=== PATIENT | male | born 1945 | race Caucasian/White ===

== ENCOUNTER → 2021-03-15 11:25 | Outpatient (CLI) | payer MEDICARE, OTHER, SELFPAY ==
--- NOTE | 2021-03-15 11:32 | CT_ITS ---
STUDY: CT LUMBAR SPINE WITH INTRATHECAL CONTRAST (LUMBAR CT MYELOGRAM) REASON FOR EXAM: Male, 75 years old. SPINAL Stenosis, lumbar REGION WO NEUROGENIC NATACHA RADIATION DOSAGE (If Supplied By Facility): CTDIvol = ( 15.23 ) mGy, DLP = ( 389.13 ) mGycm TECHNIQUE: Transaxial images were obtained from the T12 vertebra through the S1 vertebrae, following intrathecal administration of 10 ml of ISOVUE-M 200 contrast material, performed by Dr. Maicol BEYER. Please refer to this physicians technical notes for procedural details. Coronal and sagittal reconstructions were obtained. Individualized dose optimization techniques were used for this CT. COMPARISON: Comparison is made with prior lumbar myelogram. FINDINGS: Normal lumbar lordosis. There is no substantial scoliosis. Normal vertebrae of the lumbar spine. There is dependent layering of contrast material in the distal thecal sac. The conus medullaris terminates in a normal position at the L1-L2 level. There is no demonstrated cauda equina nerve root abnormality or intraspinal mass. T12-L1: There is evidence of a large herniated disc central and left lateral aspect of the thecal sac extending behind the L1 vertebrae on the left side. This is in keeping with an extruded disc. L1-2: Marked degree of disc space narrowing. Mild degree of spondylosis. Minimal degree of central canal stenosis and bilateral neural foraminal stenosis. L2-3: Moderate degree of disc space narrowing. Mild degree of central canal and bilateral neural foraminal stenosis secondary to hypertrophy of the facet joints and ligamentum flavum. L3-4: Moderate degree of disc space narrowing. Moderate degree of central canal stenosis as well as bilateral neural foraminal stenosis secondary to hypertrophy of the facet joints and ligamentum flavum. This is worse on the right side. L4-5: Severe stenosis due to hypertrophy of the facet joints as well as ligamentum flavum and central disc bulge. L5-S1: Mild degree of disc space narrowing. Central and left lateral disc herniation causing deformity of the thecal sac worse on the left side. Normal visualized sacroiliac joints. Normal visualized paraspinous soft tissue structures. CT/Spine Lumbar WITH Contrast IMPRESSION: Multilevel spinal stenosis as described. This is worse at the L4-L5 and T12-L1 levels. Electronically Signed: Alex Milian MD at 14:19 EDT , Service support ,
--- NOTE | 2021-03-15 11:40 | RAD_ITS ---
PROCEDURE: LUMBAR MYELOGRAM DATE OF EXAMINATION: 03/15/2021. INDICATION: Male, 75 years old. Low back pain. PHYSICIAN: Alex Milian M.D. CONSENT: The patient''s history and physical findings were reviewed. The lumbar myelogram procedure as well as the benefits and possible complications including infection and bleeding were discussed with the patient prior to signing a consent. SEDATION: Local anesthesia with 3 mL of 1% lidocaine was used. FLUOROSCOPY TIME (if supplied): (2:07) minutes/seconds Injection Information: 10 cc of ISOVUE-M 200 Number of images obtained: 6 TECHNIQUE: Digital fluoroscopy was used to identify a safe approach for the lumbar myelogram. The back was prepped and draped in usual fashion. Local anesthesia was utilized. Under fluoroscopic guidance a 22-gauge spinal needle was inserted into the spinal canal at the L4-5 level. Clear spinal fluid was seen. Then mL of Isovue 200 M was injected into the spinal canal. There is good opacification of the spinal fluid. There is evidence of multiple levels of extradural defects from L1 through the S1 level with areas of spinal stenosis at the T12-L1, L1-L2, L2-L3, L4-L5 and L5-S1 levels. RAD/Lumbar Myelogram IMPRESSION: Multilevel spinal stenosis as described. A CT scan will be obtained. The patient tolerated the procedure well. Electronically Signed: Alex Milian MD at 14:56 EDT , Service support ,
[2021-03-15 11:51] VITALS: BP 151/82; PULSE 60; RESP 18; TEMP 36.9; O2SAT 97; BMI 25.4
[2021-03-15] MEDS: Lidocaine 2% (5ml sdv) 5 ML VIAL.MPF INFILT (12:20)
[2021-03-15 13:40] VITALS: BP 147/92; PULSE 57; RESP 18; O2SAT 93
== END | disposition home or self-care (01) ==
PROVIDERS: PCP Family Medicine; Referring Provider Orthopaedic Surgery; Visit Provider Orthopaedic Surgery
DX: M48.061 Spinal stenosis, lumbar region without neurogenic claudication (principal)
CPT/HCPCS: 62304; 72132; Q9965

== ENCOUNTER → 2024-02-09 | Outpatient (CLI) | payer MEDICARE, OTHER, SELFPAY | END | disposition home or self-care (01) | LOC: LABSPEC 17:33 | PROVIDERS: PCP Family Medicine; Visit Provider Physician Assistant Surgical | DX: N39.0 Urinary tract infection, site not specified (principal) | CPT/HCPCS: 87086; 87088; 87186 ==